=== PATIENT | female | born 1985 | race Caucasian/White ===

== ENCOUNTER → 2020-08-13 | Outpatient (CLI) | payer BC ==
[~2020-08-13] MED LIST: ACET-1600 PO
== END | disposition home or self-care (01) ==
LOC: STAR 13:53
PROVIDERS: ATTEND Orthopaedic Surgery
DX: Z20.822 Contact with and (suspected) exposure to COVID-19 (principal); M95.8 Other specified acquired deformities of musculoskeletal system; M25.562 Pain in left knee
CPT/HCPCS: 87635